=== PATIENT | female | born 1965 | race Caucasian/White ===

== ENCOUNTER 2016-12-02 02:55 | Emergency (ER) | payer OTHER ==
[~2016-12-02] VITALS: Ht 177.8 cm; Wt 72.6 kg
[2016-12-02] MEDS ORDERED: ACETAMINOPHEN ES 500 MG TABLET ONE (03:36)
[2016-12-02] MEDS ORDERED: ACETAMINOPHEN 325 MG TABLET PO ONE (04:00)
[2016-12-02] MEDS ORDERED: IBUPROFEN 400 MG TABLET ONE (04:32)
[2016-12-02] MEDS ORDERED: IBUPROFEN 400 MG TABLET PO ONE (05:00)
[2016-12-02 05:04] VITALS: BP 110/76
== END 2016-12-02 05:05 | disposition home or self-care (01) ==
LOC: ER 02:58
DX: S01.01XA Laceration without foreign body of scalp, initial encounter (principal); M35.00 Sjogren syndrome, unspecified; W22.8XXA Striking against or struck by other objects, initial encounter; Y93.9 Activity, unspecified; Y92.89 Other specified places as the place of occurrence of the external cause; Y99.8 Other external cause status; R73.09 Other abnormal glucose
CPT/HCPCS: 12002; 70450; 72125; 82962; 99284; A4217; A4606; A6402; Z7610